=== PATIENT | female | born 1995 | race Hispanic/Latino ===

== ENCOUNTER 2021-03-09 05:49 | Emergency (ER) | payer OTHER ==
[2021-03-09 06:36] LABS: APPEARANCE,URINE Clear (CLEAR); BILIRUBIN,URINE Negative (NEGATIVE); COLOR,URINE Yellow (YELLOW); GLUCOSE, URINE (UA) Negative (NEGATIVE); KETONES,URINE Trace mg/dL (NEGATIVE); LEUKOCYTE ESTERASE ,URINE Trace (NEGATIVE); NITRATE,URINE Negative (NEGATIVE); OCCULT BLOOD,URINE Moderate (NEGATIVE); PH,URINE 5.5 (5.0-8.0); PROTEIN,URINE Negative (NEGATIVE)
[2021-03-09 06:55] LABS: HCG,QUAL RESULT NEGATIVE (NEGATIVE)
[2021-03-09] MEDS ORDERED: LEVOFLOXACIN 500 MG TABLET ONE (07:21)
[2021-03-09] MEDS ORDERED: KETOROLAC TROMETHAMINE 60 MG/2 ML VIAL ONE (07:21)
[2021-03-09 08:00] LABS: BACTERIA,URINE Few /HPF (None Seen); MUCUS,URINE Moderate LPF (None Seen)
== END 2021-03-09 07:44 | disposition home or self-care (01) ==
LOC: EDH 05:49
DX: N39.0 Urinary tract infection, site not specified (principal); N75.0 Cyst of Bartholin's gland; Z72.0 Tobacco use; Z98.890 Other specified postprocedural states
CPT/HCPCS: 81001; 81025; 87088; 96372; 99283; J1885